=== PATIENT | male | born 1980 | race Caucasian/White ===

== ENCOUNTER 2019-12-12 18:19 | Inpatient (IN) | payer MEDICAID ==
[~2019-12-12] VITALS: Ht 162.6 cm; Wt 65.9 kg
--- NOTE | 2019-12-12 19:09 | NUR ---
REPORT TO ADIS ARREDONDO
[2019-12-12 19:28] LABS: BASOPHILS 0.2 % (0-2); EOSINOPHILS 2.6 % (0-7); HEMATOCRIT 45.2 % (42.0-54.0); HEMOGLOBIN 15.4 g/dL (13.5-17.5); IMMATURE GRANULOCYTES 0.2 % (0-5); LYMPHOCYTES 11.8 % (15-50); MCH 30.9 pg (26.0-34.0); MCHC 34.1 g/dL (31.0-37.0); MCV 90.6 fL (80.0-100.0); MEAN PLATELET VOLUME 11.1 fL (7.4-10.4); NEUTROPHILS 78.2 % (40-80); PLATELET COUNT 163 10x3/uL (130-400); RBC 4.99 10x6/uL (4.20-6.10); RDW 13.2 % (11.5-14.5); WBC 16.5 10x3/uL (4.8-10.8)
[2019-12-12 19:37] LABS: INR 1.05 (0.85-1.17); PROTIME 13.7 SECONDS (11.6-15.0)
[2019-12-12 19:38] LABS: APTT 33.4 SECONDS (22.8-39.4)
[2019-12-12 19:40] LABS: CALC OSMOLALITY 277 mosm/kg (275-300); CALCIUM 8.8 mg/dL (8.5-10.1); CARBON DIOXIDE 30.2 mmol/L (21.0-32.0); CHLORIDE - SERUM 102 mmol/L (98-107); CREATININE - SERUM 0.9 mg/dL (0.6-1.3); GLUCOSE 91 mg/dL (74-106); POTASSIUM - SERUM 3.5 mmol/L (3.5-5.1); SODIUM 139 mmol/L (136-145); UREA NITROGEN 13 mg/dL (7-18); eGFR NON AFRICAN AMERICAN > 90 mL/min (90-120)
[2019-12-12 19:55] LABS: ALBUMIN 3.3 g/dL (3.4-5.0); ALKALINE PHOSPHATASE 98 U/L (46-116); ALT (SGPT) 48 U/L (10-68); CKMB 0.6 U/L (0.0-3.6); CREATINE KINASE 69 UL (21-232); PROTEIN - SERUM 7.4 g/dL (6.4-8.2)
[2019-12-12 19:58] LABS: TROPONIN-I < 0.017 ng/mL (0.000-0.060)
[2019-12-12 20:08] VITALS: BP 131/74
--- NOTE | 2019-12-12 20:10 | NUR ---
PT TO RADIOLOGY.
--- NOTE | 2019-12-12 20:37 | NUR ---
PT RETURNED FROM RADIOLOGY.
[2019-12-12 21:00] VITALS: BP 135/85
--- NOTE | 2019-12-12 21:08 | NUR ---
URINE SENT TO LAB
[2019-12-12 21:26] LABS: UDS - AMPHET POSITIVE QUAL (NEGATIVE); UDS - BARB NEGATIVE QUAL (NEGATIVE); UDS - BENZO NEGATIVE QUAL (NEGATIVE); UDS - COCAINE NEGATIVE QUAL (NEGATIVE); UDS - OPIATE POSITIVE QUAL (NEGATIVE); UDS - PCP NEGATIVE QUAL (NEGATIVE); UDS - THC POSITIVE QUAL (NEGATIVE)
[2019-12-12 21:28] LABS: APPEARANCE CLEAR (CLEAR); COLOR YELLOW (YELLOW); GLUCOSE NEGATIVE (NEGATIVE); KETONE NEGATIVE (NEGATIVE); NITRITE NEGATIVE (NEGATIVE); PROTEIN NEGATIVE (NEGATIVE)
[2019-12-12 21:29] LABS: BILIRUBIN NEGATIVE (NEGATIVE); UROBILINOGEN NORMAL (NORMAL)
--- NOTE | 2019-12-12 23:40 | NUR ---
PT TO ROOM 2133 VIA WHEELCHAIR ACCOMPANIED BY HOSPITAL STAFF AND SON.
[2019-12-13] VITALS (7 sets, daily range): BP systolic 118–151; BP diastolic 70–89; Ht 162.6 cm; Wt 65.9 kg
[2019-12-13 06:16] LABS: BASOPHILS 0.1 % (0-2); EOSINOPHILS 0 % (0-7); IMMATURE GRANULOCYTES 0.3 % (0-5); LYMPHOCYTES 5.8 % (15-50); MCH 30.7 pg (26.0-34.0); MCHC 34.1 g/dL (31.0-37.0); MCV 90.2 fL (80.0-100.0); MEAN PLATELET VOLUME 11.1 fL (7.4-10.4); MONOCYTES 1.2 % (2-11); NEUTROPHILS 92.6 % (40-80); PLATELET COUNT 169 10x3/uL (130-400); RBC 4.88 10x6/uL (4.20-6.10); RDW 13.1 % (11.5-14.5); WBC 13.1 10x3/uL (4.8-10.8)
[2019-12-13 06:24] LABS: CALCIUM 8.7 mg/dL (8.5-10.1); CARBON DIOXIDE 26.5 mmol/L (21.0-32.0); CHLORIDE - SERUM 106 mmol/L (98-107); CREATININE - SERUM 0.9 mg/dL (0.6-1.3); MAGNESIUM - SERUM 2.1 mg/dL (1.8-2.4); PHOSPHOROUS 2.5 mg/dL (2.5-4.9); SODIUM 140 mmol/L (136-145); UREA NITROGEN 11 mg/dL (7-18); eGFR NON AFRICAN AMERICAN > 90 mL/min (90-120)
[2019-12-13 06:25] LABS: CALC OSMOLALITY 279 mosm/kg (275-300); GLUCOSE 139 mg/dL (74-106); POTASSIUM - SERUM 4.3 mmol/L (3.5-5.1)
--- NOTE | 2019-12-13 08:01 | NUR ---
REPORT RECEIVED. WILL CONTINUE WITH POC. PT CURRENTLY SITTING UP IN BED. CALL LIGHT W/I REACH. PT IS AAO AND UP AD MARIBEL. RR EVEN AND UNLABORED ON RA. L.AC PIV IS SALINE LOCKED. NO S/S OF DISTRESS NOTED. PT DENIES ANY NEEDS. WILL CTM.
--- NOTE | 2019-12-13 10:53 | NUR ---
I have reviewed this patient and I concur with the Shift Assessment completed by the Licensed Practical Nurse today this shift.
--- NOTE | 2019-12-13 19:10 | NUR ---
BEDSIDE REPORT RECEIVED FROM DAY SHIFT, PT CARE ASSUMED. WROTE NAME ON BOARD. PT SITTING UP IN BED, VISITING WITH SON AT BEDSIDE, AAOX4. DENIES PAIN OR ANY OTHER NEEDS AT THIS TIME. BED IN LOWEST POSITION, SR X1, CALL LIGHT WITHIN REACH. WILL CONTINUE TO MONITOR.
[2019-12-14] VITALS: BP 138/89
[2019-12-14 04:00] VITALS: BP 143/95
[2019-12-14 05:41] LABS: BASOPHILS 0.2 % (0-2); EOSINOPHILS 1.3 % (0-7); HEMATOCRIT 42.9 % (42.0-54.0); HEMOGLOBIN 14.6 g/dL (13.5-17.5); IMMATURE GRANULOCYTES 0.3 % (0-5); LYMPHOCYTES 13.2 % (15-50); MCH 30.7 pg (26.0-34.0); MCV 90.3 fL (80.0-100.0); MEAN PLATELET VOLUME 10.9 fL (7.4-10.4); MONOCYTES 6.6 % (2-11); NEUTROPHILS 78.4 % (40-80); PLATELET COUNT 197 10x3/uL (130-400); RBC 4.75 10x6/uL (4.20-6.10); RDW 13.1 % (11.5-14.5)
[2019-12-14 06:23] LABS: CARBON DIOXIDE 26.8 mmol/L (21.0-32.0); CHLORIDE - SERUM 103 mmol/L (98-107); CREATININE - SERUM 0.9 mg/dL (0.6-1.3); MAGNESIUM - SERUM 1.9 mg/dL (1.8-2.4); SODIUM 140 mmol/L (136-145); UREA NITROGEN 13 mg/dL (7-18); eGFR NON AFRICAN AMERICAN > 90 mL/min (90-120)
[2019-12-14 06:31] LABS: CALC OSMOLALITY 277 mosm/kg (275-300); GLUCOSE 85 mg/dL (74-106); POTASSIUM - SERUM 3.5 mmol/L (3.5-5.1)
--- NOTE | 2019-12-14 07:00 | NUR ---
RECEIVED REPORT. ASSUMED CARE OF PATIENT. CALL LIGHT WITHIN REACH. RESTING WITH EYES CLOSED ON LEFT LATERAL SIDE. RESP EVEN AND UNLABORED. PATIENTS SON WITH EYES CLOSED IN CHAIR AT BEDSIDE. IV INFUSING AT KVO RATE. NO DISTRESS.
--- NOTE | 2019-12-14 07:58 | NUR ---
IV ABX INFUSING AT THIS TIME ORDERED.
[2019-12-14 08:00] VITALS: BP 125/72
--- NOTE | 2019-12-14 09:51 | NUR ---
REFUSED LOVENOX INJECTION, ABLE TO TELL ME WHAT THE INJECTION IS FOR AND THAT HE IS UP MOVING AROUND.
[2019-12-14 16:00] VITALS: BP 132/81
[2019-12-14 20:00] VITALS: BP 143/95
--- NOTE | 2019-12-14 21:39 | NUR ---
INITIAL ROUNDS COMPLETED AT 1915 HRS. PT STATES IV TO LFA IS SORE AND PAINFUL TO TOUCH. IV DC'S WITH CATHETER INTACT AT 1925 HRS. NEW IV STARTED #20 TO RFA WITH ATTEMPT X1. PT TOLERATED ACTIVITY. PT OUT TO SMOKE AT 1935 HRS WITH SON. BACK TO ROOM AT 2020 HRS. ZOSYN HUNG AT THAT TIME. ASSESSMENT COMPLETED AT [address] PER CM HR 118. ALERT AND ORIENTED TO PERSON,PLACE AND TIME. GRIMES. R SIDE OF FACE SWOLLEN AND RED ALONG SIDE BURN. OPEN SORE TO UPPER AREA DRAINING BLOOD TINGED YELLOW EXUDATE. LUNGS ESSENTIALLY CTA. GRIMES. PT CURRENTLY WATCHING TV. SRUP X2,CALL LIGHT WITHIN REACH.
[2019-12-15] VITALS: BP 156/103
--- NOTE | 2019-12-15 00:17 | NUR ---
PT OUTSIDE SMOKING. WILL CONTINUE TO MONITOR.
--- NOTE | 2019-12-15 02:01 | NUR ---
PT BACK FROM SMOKING. SCHEDULED IVAB INITIATED. SON AT BEDSIDE.
--- NOTE | 2019-12-15 03:44 | NUR ---
PT WATCHNG TV. NO DISTRESS NOTED. CALL LIGHT WITHIN REACH.
[2019-12-15 04:00] VITALS: BP 132/95
--- NOTE | 2019-12-15 06:24 | NUR ---
VSS THROUGHOUT NIGHT. ST PER CM HR IN LOW 100'S. PT OFF FLOOR NUMEROUS TIMES TO SMOKE. GAIT EVEN AND STEADY. NEEDS MET; WILL CONTINUE TO MONITOR.
[2019-12-15 06:38] LABS: BASOPHILS 0.2 % (0-2); HEMATOCRIT 42.3 % (42.0-54.0); HEMOGLOBIN 14.2 g/dL (13.5-17.5); IMMATURE GRANULOCYTES 0.3 % (0-5); LYMPHOCYTES 21.6 % (15-50); MCH 30.1 pg (26.0-34.0); MCHC 33.6 g/dL (31.0-37.0); MCV 89.6 fL (80.0-100.0); MEAN PLATELET VOLUME 11.6 fL (7.4-10.4); MONOCYTES 6.6 % (2-11); NEUTROPHILS 66.3 % (40-80); PLATELET COUNT 208 10x3/uL (130-400); RBC 4.72 10x6/uL (4.20-6.10); RDW 13.1 % (11.5-14.5)
[2019-12-15 06:40] LABS: WBC 9.6 10x3/uL (4.8-10.8)
[2019-12-15 06:43] LABS: CALC OSMOLALITY 279 mosm/kg (275-300); CALCIUM 9.3 mg/dL (8.5-10.1); CARBON DIOXIDE 26.5 mmol/L (21.0-32.0); CHLORIDE - SERUM 104 mmol/L (98-107); CREATININE - SERUM 0.8 mg/dL (0.6-1.3); GLUCOSE 117 mg/dL (74-106); PHOSPHOROUS 3.6 mg/dL (2.5-4.9); POTASSIUM - SERUM 3.8 mmol/L (3.5-5.1); SODIUM 140 mmol/L (136-145); UREA NITROGEN 12 mg/dL (7-18); eGFR NON AFRICAN AMERICAN > 90 mL/min (90-120)
--- NOTE | 2019-12-15 07:00 | NUR ---
RECEIVED REPORT. ASSUMED CARE OF PATIENT. CALL LIGHT WITHIN REACH. PATIETN OOB AMBULATING TO RESTROOM THIS AM. DENIES NEEDS. RESP EVEN AND UNLABORED. IV ABX INFUSING ORDERED. NO DISTRESS. SR ON TELEMETRY, 77.
[2019-12-15 08:00] VITALS: BP 138/93
--- NOTE | 2019-12-15 09:06 | NUR ---
PATIENT ASKED BEFORE PULLING LOVENOX IF HE WOULD ACCEPT INJECTION THIS AM AND THE PATIENT DECLINED LOVENOX INJECTION.
--- NOTE | 2019-12-15 11:38 | NUR ---
MEDICATED WITH MOTRIN FOR SLIGHT DISCOMFORT. NO DISTRESS.
[2019-12-15 12:00] VITALS: BP 138/94
[2019-12-15] MEDS ORDERED: CLEOCIN HCL300 MG PO ×2 (12:51→13:00)
--- NOTE | 2019-12-15 13:21 | MORECARE ---
CASE MANAGEMENT DISCHARGE SUMMARY PATIENT: MARIE AUGUST UNIT: [id number] ADM DATE: 12/12/19 AGE: 39 : 82 SEX: M ROOM/BED: D.2133 AUTHOR: MADY JENKINS PHYSICIAN: REFERRING PHYSICIAN: DONNIE VINSON MD DATE OF SERVICE: 12/15/19 Discharge Plan Patient Name: MARIE AUGUST [facility] [facility] 1980 Planned Disposition: Home Anticipated Discharge Date: 12/15/19 Discharge Date: Expected LOS: 3 Initial Reviewer: [email or web address] Initial Review Date: 12/13/2019 Generated: 12/15/19 2:21 pm Patient Name: MARIE AUGUST Page [phone] at 1321 All edits/amendments must be made on the electronic document DICTATION DATE: 12/15/19 1321 PACKING AND SHIPPING CLERK: LIAN 12/15/19 1321 RPT#: [id number] DC DATE: STATUS: ADM IN [facility] [address] [place] [address] END OF REPORT
--- NOTE | 2019-12-15 13:34 | NUR ---
TELEMETRY REMOVED. 20 GAUGE IV REMOVED FROM RIGHT FOREARM. CATHETER TIP INTACT. NO BLEEDING FROM SITE. 2X2 GAUZE APPLIED AND SECURED WITH BANDAID. TOLERATED IV REMOVAL WELL DISCHARGE INSTRUCTIONS PROVIDED. PATIENT VERBALIZED UNDERSTANDING OF ALL INSTUCTIONS PROVIDED. PATIENTS MOM IS HERE TO DRIVE HIM AND HIS SON HOME.
--- NOTE | 2019-12-15 13:41 | MORECARE ---
CASE MANAGEMENT DISCHARGE SUMMARY PATIENT: MARIE AUGUST UNIT: [id number] ADM DATE: 12/12/19 AGE: 39 : 82 SEX: M ROOM/BED: D.2133 AUTHOR: MADY JENKINS PHYSICIAN: REFERRING PHYSICIAN: DONNIE VINSON MD DATE OF SERVICE: 12/15/19 Discharge Plan Patient Name: MARIE AUGUST [facility] [facility] 1980 Planned Disposition: Home Anticipated Discharge Date: 12/15/19 Discharge Date: Expected LOS: 3 Initial Reviewer: [email or web address] Initial Review Date: 12/13/2019 Generated: 12/15/19 2:41 pm Comments DCP- Discharge Planning Updated by [email or web address]: Tess Medina on 12/15/19 12:[address] PATIENT FOR DISCHARGE TO HOME. CM MET WITH HIM AND HE IS IN AGREEMENT W/ THE DISCHARGE. DENIES HE HAS ANY NEEDS. [facility] AND CONFIRMS HE HAS TRANSPORTATION TO HOME. HE WAS NOT CERTAIN HE HAD MEDICAID BUT SAID HE COULD OBTAIN HIS MEDICATION. CM ADVISED HE HAD MEDICAID LISTED ON HIS FACE SHEET. CM PROVIDED A COPY OF THE FACE SHEET W/ HIS MEDICAID NUMBER. Last DP export: 12/15/19 12:21 p Patient Name: MARIE AUGUST Page [phone] at 1341 All edits/amendments must be made on the electronic document DICTATION DATE: 12/15/19 1341 PLATE DEVELOPER: LIAN 12/15/19 1341 RPT#: [id number] DC DATE: STATUS: ADM IN [facility] [address] [place] [address] END OF REPORT
--- NOTE | 2019-12-15 14:00 | NUR ---
PATIENT DISCHARGED TO HOME WITH ALL PERSONAL BELONGINGS. PATIENT IN NO ACUTE DISTRESS UPON LEAVING UNIT. DISCHARGED TO HOME WITH HIS MOTHER.
--- NOTE | 2019-12-16 09:10 | MORECARE ---
CASE MANAGEMENT DISCHARGE SUMMARY PATIENT: MARIE AUGUST UNIT: [id number] ADM DATE: 12/12/19 AGE: 39 : 82 SEX: M ROOM/BED: D.2133 AUTHOR: MADY JENKINS PHYSICIAN: REFERRING PHYSICIAN: DONNIE VINSON MD DATE OF SERVICE: 12/16/19 Discharge Plan Patient Name: MARIE AUGUST [facility] : 1980 Planned Disposition: Home Anticipated Discharge Date: 12/15/19 Discharge Date: 12/15/2019 Expected LOS: 3 Initial Reviewer: [email or web address] Initial Review Date: 12/13/2019 Generated: 12/16/19 10:09 am Comments DCP- Discharge Planning Updated by [email or web address]: Tess Medina on 12/15/19 12:[address] PATIENT FOR DISCHARGE TO HOME. CM MET WITH HIM AND HE IS IN AGREEMENT W/ THE DISCHARGE. DENIES HE HAS ANY NEEDS. HAS FAMILY AT THE [facility] AND CONFIRMS HE HAS TRANSPORTATION TO HOME. HE WAS NOT CERTAIN HE HAD MEDICAID BUT SAID HE COULD OBTAIN HIS MEDICATION. CM ADVISED HE HAD MEDICAID LISTED ON HIS FACE SHEET. CM PROVIDED A COPY OF THE FACE SHEET W/ HIS MEDICAID NUMBER. Last DP export: 12/15/19 12:41 p Patient Name: MARIE AUGUST Page [phone] at 0910 All edits/amendments must be made on the electronic document DICTATION DATE: 12/16/19908 FILM LOADER: LIAN 12/16/19 09 RPT#: [id number] DC DATE:12/15/19 STATUS: DIS IN [facility] [address] [place] [address] END OF REPORT
== END 2019-12-15 14:00 | disposition home or self-care (01) | DRG 603 ==
LOC: D.ER 18:19 → D.M2 23:16 → D.ER 23:26 → D.M2 12-15 14:00
PROVIDERS: Emergency Medicine; Family Medicine; ADMIT Family Medicine; ATTEND Family Medicine
DX: L03.211 Cellulitis of face (principal); F17.213 Nicotine dependence, cigarettes, with withdrawal; L03.221 Cellulitis of neck; F15.20 Other stimulant dependence, uncomplicated; I10 Essential (primary) hypertension; F12.20 Cannabis dependence, uncomplicated